=== PATIENT | female | born 1995 | race Caucasian/White ===

== ENCOUNTER 2018-08-04 21:04 | Emergency (ER) | payer SELFPAY ==
[~2018-08-04] VITALS: Ht 152.4 cm; Wt 56.8 kg
[2018-08-04 21:09] VITALS: Ht 152.4 cm; Wt 56.8 kg
[2018-08-05] MEDS ORDERED: LIDOCAINE 1% (MDV) 20 ML INJ SC ONE (02:30)
[2018-08-05] MEDS ORDERED: METR70GE15 VAG (04:52)
[2018-08-05] MEDS ORDERED: SULF1TAB31 PO (04:52)
[2018-08-05] MEDS ORDERED: IBUP800T48 PO (04:52)
[2018-08-05] MEDS ORDERED: CEPH-443 PO (04:52)
[2018-08-05] MEDS ORDERED: LIDOCAINE 1% (MPF) 5 ML VIAL INFIL ONE (05:00)
[2018-08-05] MEDS ORDERED: TRIMETHOPRIM/SULFAMETHOX (DS) TAB PO ONE (05:00)
[2018-08-05] MEDS ORDERED: CEFTRIAXONE 1 GM INJ IM ONE (05:00)
[2018-08-05] MEDS ORDERED: ONDANSETRON (ODT) 4 MG TAB ODT STA (05:09)
[2018-08-05] MEDS ORDERED: traMADol 50 MG TAB PO ONE (05:30)
[2018-08-05] MEDS ORDERED: ACETAMINOPHEN 500 MG TAB PO STA (05:36)
[2018-08-05 05:55] VITALS: BP 110/69; PULSE 103; RESP 20
[2018-08-05] MEDS ORDERED: IBUPROFEN 600 MG TAB PO ONE (06:00)
--- NOTE | 2018-08-05 21:54 | ERD ---
ER Documentation Chief Complaint Chief Complaint STATES RED PAINFUL SWOLLEN BUMP TO VAGINAL AREA X4 DAYS HPI History of Present Illness: 22-year-old female coming in today with complaint of red painful swollen bump to the vaginal area that started 4 days ago and has increased in size.. Patient reports difficulty walking due to pain associated with area of concern. Patient denies any systemic signs of infection symptoms. At home pharmacological/nonpharmacological treatment for symptoms: Denies Denies social concerns; Denies recent foreign travel ROS All systems reviewed and are negative except as per history of present illness. Medications Home Meds Active Scripts Sulfamethoxazole/Trimethoprim* (Bactrim Ds* Tablet) 1 Each Tablet, 1 TAB PO BID for labial infection for 7 Days, TAB Prov:GREGOR TO NP 08/05/18 Cephalexin* (Keflex*) 500 Mg Capsule, 500 MG PO QID for labial infecton for 7 Days, CAP Prov:GREGOR TO V ENAMEL DRIER 08/05/18 Ibuprofen* (Motrin*) 800 Mg Tab, 800 MG PO Q6H PRN for PAIN AND OR ELEVATED TEMP, #30 TAB Prov:GREGOR TO V ENAMEL DRIER 08/05/18 Metronidazole* (Metrogel* Vaginal) 0.75% -70 Gram Gel.w.appl, 1 APPFUL VAG BID for 5 Days, TUB Prov:GREGOR TO NP 08/05/18 Allergies Allergies: Coded Allergies: No Known Allergy (Unverified , 08/04/18) PMhx/Soc Medical and Surgical Hx: pt denies Medical Hx, pt denies Surgical Hx Hx Alcohol Use: Yes (socially) Hx Substance Use: No Hx Tobacco Use: No Smoking Status: Never smoker FmHx Family History: diabetes Physical Exam Vitals Vital Signs Date Temp Pulse Resp B/P (MAP) Pulse Ox O2 O2 Flow FiO2 Time Delivery Rate 08/05/18 101.3 103 20 110/69 98 Room Air 05:55 (83) 08/05/18 101.3 05:46 08/05/18 101.3 05:46 08/04/18 100.5 105 17 121/69 97 21:09 (86) Physical Exam Const: No acute distress Head: Atraumatic Eyes: Normal Conjunctiva ENT: Normal External Ears, Nose and Mouth. Neck: Full range of motion. No meningismus. Resp: Clear to auscultation bilaterally Cardio: Regular rate and rhythm, no murmurs; heart rate 98 Abd: Soft, non tender, non distended. Normal bowel sounds Skin: No petechiae or rashes Back: No midline or flank tenderness Ext: No cyanosis, or edema Neur: Awake and alert Psych: Normal Mood and Affect Pelvic Exam: [employer] Supervisor present Abdomen: Nontender External Genitalia: Abscess noted to left labia. Positive fluctuance. Tender to palpation. No streaking or surrounding cellulitis. Speculum: --; No speculum used, milky white odorous discharge noted. Urogenital wet mount collected using cotton Q-tips. Bimanual: -- Results 24 hrs Laboratory Tests Test 08/05/18 05:23 Bedside Urine pH (LAB) 6.0 Bedside Urine Protein (LAB) 2+ Bedside Urine Glucose (UA) Negative Bedside Urine Ketones (LAB) 1+ Bedside Urine Blood 3+ Bedside Urine Nitrite (LAB) Negative Bedside Urine Leukocyte Esterase (L Negative Current Medications Medications Dose Sig/Ray Start Time Status Last (Trade) Ordered Route PRN Stop Time Admin Dose Reason Admin Lidocaine 20 ml ONCE ONCE 08/05/18 DC (Xylocaine SC 02:30 1% (Mdv) 20 08/05/18 02:31 ml) Ceftriaxone 1 gm ONCE ONCE 08/05/18 DC 08/05/18 Sodium IM 05:00 05:00 (Rocephin) 08/05/18 05:01 Lidocaine 2.1 ml ONCE ONCE 08/05/18 DC 08/05/18 (Xylocaine INFIL 05:00 05:01 1% (Mpf)) 08/05/18 05:01 1 tab ONCE ONCE 08/05/18 DC 08/05/18 Trimethoprim/ PO 05:00 05:00 08/05/18 05:01 Sulfamethoxaz ole (Bactrim (Ds)) Tramadol 50 mg ONCE ONCE 08/05/18 DC 08/05/18 HCl PO 05:30 05:30 (Ultram) 08/05/18 05:31 Ondansetron 4 mg ONCE STAT 08/05/18 DC 08/05/18 HCl (Zofran ODT 05:09 05:30 Odt) 08/05/18 05:11 1,000 mg ONCE STAT 08/05/18 DC 08/05/18 Acetaminophen PO 05:36 05:46 (Tylenol 08/05/18 05:40 Tab) Ibuprofen 600 mg ONCE ONCE 08/05/18 DC 08/05/18 (Motrin) PO 06:00 05:46 08/05/18 06:01 Procedures/MDM ED course includes a thorough examination and history. Medications: Acetaminophen ibuprofen for fever Imaging:---- Labs: Urogenital wet mount Abscess Incision and Drainage with irrigation by me: Location: Left labia Anesthesia: Local 1% Lidocaine Technique: Irrigated. Disrupted loculations w/ instrumentation Packing: Iodoform Complications: No complications 48 hour wound check removal of packing. Scar minimization instructions given. Low suspicion for life-threatening medical emergency. Low suspicion for infectious emergency that requires hospitalization or immediate surgical intervention. Low suspicion of genitourinary emergency that requires hospitalization or immediate surgical intervention. No tunneling of abscess. Otherwise healthy patient presenting with constellation of symptoms likely representing abscess/Bartholin glands infection as characterized by history, physical exam findings, lab findings. Urogenital wet mount without clue cells or trichomonas. Due to the odor and milky white discharge, will prophylactically treat for vaginosis with metronidazole. Will order gonorrhea chlamydia on urine to determine etiology if that is present and that is causing discharge. Patient admits to monogamous relationship. ED course includes IM ceftriaxone before discharge. Tramadol for pain and prophylactic Zofran. No acute distress. Patient hemodynamically stable despite fever. No respiratory distress, otherwise relatively well appearing and nontoxic. Patient educated on diagnoses, prescriptions, follow-up care, return precautions. Strict return precautions given for worsening condition; questions answered discharge. Disposition for discharge with followup in 2 days with PCP/clinic. Departure Diagnosis: Primary Impression: Bartholin's gland infection Additional Impressions: Abscess of left genital labia BV (bacterial vaginosis) Condition: Stable Patient Instructions: Bartholin's Cyst (I And D), Vaginitis, Bacterial Referrals: COMMUNITY CLINICS YOU HAVE RECEIVED A MEDICAL SCREENING EXAM AND THE RESULTS INDICATE THAT YOU DO NOT HAVE A CONDITION THAT REQUIRES URGENT TREATMENT IN THE EMERGENCY DEPARTMENT. FURTHER EVALUATION AND TREATMENT OF YOUR CONDITION CAN WAIT UNTIL YOU ARE SEEN IN YOUR DOCTORS OFFICE WITHIN THE NEXT 1-2 DAYS. IT IS YOUR RESPONSIBILITY TO MAKE AN APPOINTMENT FOR FOLOW-UP CARE. IF YOU HAVE A PRIMARY DOCTOR --you should call your primary doctor and schedule an appointment IF YOU DO NOT HAVE A PRIMARY DOCTOR YOU CAN CALL OUR PHYSICIAN REFERRAL HOTLINE AT IF YOU CAN NOT AFFORD TO SEE A PHYSICIAN YOU CAN CHOSE FROM THE FOLLOWING [facility] [address] [facility] [address] [facility] [address] [facility] [address] [facility] [address] [facility]. [facility] [address] [facility]. [facility] YOU HAVE RECEIVED A MEDICAL SCREENING EXAM AND THE RESULTS INDICATE THAT YOU DO NOT HAVE A CONDITION THAT REQUIRES URGENT TREATMENT IN THE EMERGENCY DEPARTMENT. FURTHER EVALUATION AND TREATMENT OF YOUR CONDITION CAN WAIT UNTIL YOU ARE SEEN IN YOUR DOCTORS OFFICE WITHIN THE NEXT 1-2 DAYS. IT IS YOUR RESPONSIBILITY TO MAKE AN APPOINTMENT FOR FOLOW-UP CARE. IF YOU HAVE A PRIMARY DOCTOR --you should call your primary doctor and schedule and appointment IF YOU DO NOT HAVE A PRIMARY DOCTOR YOU CAN CALL OUR PHYSICIAN REFERRAL HOTLINE AT . IF YOU CAN NOT AFFORD TO SEE A PHYSICIAN YOU CAN CHOSE FROM THE FOLLOWING [facility] INSTITUTIONS: [facility] [address] [place] [address] [facility] [address] [place] [address] [facility] + [facility] [address] [place] [address] Additional Instructions: Thank you very much for allowing us to participate in your care. Your health and safety is our top priority at [facility]. It is important to read all discharge instructions and education provided in your discharge packet. Call your primary care doctor TOMORROW for an appointment during the next 2-4 days and bring all the information and medications prescribed. Have prescriptions filled and follow precisely the directions on the label. -Cephalexin as an antibiotic for the labial infection; you must take this medication every 6 hours for the next 10 days. -Bactrim is another antibiotic for the labial infection; you must take this medication every 12 hours for the next 10 days. -Metronidazole is a vaginal suppository; you must take this medication every 12 hours for the next 5 days for the white, vaginal discharge infection. -Ibuprofen is a anti-inflammatory/pain medication; you can take this every 6-8 hours for pain and inflammation. If the symptoms get worse and your provider is unavailable, return to the Emergency Department immediately. GREGOR TO NP Aug 05, 2018 21:54
== END 2018-08-05 05:55 | disposition home or self-care (01) ==
LOC: FTE 21:04
DX: N75.8 Other diseases of Bartholin's gland (principal); N76.4 Abscess of vulva; N76.0 Acute vaginitis
CPT/HCPCS: 56420; 81003; 87210; 87591; 96372; 99284; J0696

== ENCOUNTER 2018-08-07 16:38 | Emergency (ER) | payer SELFPAY ==
[~2018-08-07] VITALS: Wt 57.1 kg
[~2018-08-07 16:38] MED LIST: CEPH-443 PO; IBUP800T48 PO; METR70GE15 VAG; SULF1TAB31 PO
[2018-08-07 16:41] VITALS: BP 114/78; PULSE 100; RESP 18
--- NOTE | 2018-08-07 17:34 | ERD ---
ER Documentation Chief Complaint Chief Complaint HERE FOR WOUND CHECK FOR A BARTOLIN CYST 2 DAYS AGO HPI This is a 22-year-old female patient who presents to the emergency room for a recheck to I&D of Bartholin gland cyst 2 days ago. Patient states she is feeling better only occasionally taking ibuprofen, no fevers, no vaginal discharge, no purulent or malodorous drainage. Patient states she is compliant with her antibiotics. ROS All systems reviewed and are negative except as per history of present illness. Medications Home Meds Active Scripts Sulfamethoxazole/Trimethoprim* (Bactrim Ds* Tablet) 1 Each Tablet, 1 TAB PO BID for labial infection for 7 Days, TAB Prov:GWEN TOA V LINEN ROOM CUSTODIAN 08/05/18 Cephalexin* (Keflex*) 500 Mg Capsule, 500 MG PO QID for labial infecton for 7 Days, CAP Prov:GWEN TOA V LINEN ROOM CUSTODIAN 08/05/18 Ibuprofen* (Motrin*) 800 Mg Tab, 800 MG PO Q6H PRN for PAIN AND OR ELEVATED TEMP, #30 TAB Prov:GREGOR TO V LINEN ROOM CUSTODIAN 08/05/18 Metronidazole* (Metrogel* Vaginal) 0.75% -70 Gram Gel.w.appl, 1 APPFUL VAG BID for 5 Days, TUB Prov:GWEN TOA V LINEN ROOM CUSTODIAN 08/05/18 Allergies Allergies: Coded Allergies: No Known Allergy (Unverified , 08/04/18) PMhx/Soc Medical and Surgical Hx: pt denies Medical Hx, pt denies Surgical Hx Hx Alcohol Use: Yes (socially) Hx Substance Use: No Hx Tobacco Use: No Smoking Status: Never smoker Physical Exam Vitals Vital Signs Date Temp Pulse Resp B/P (MAP) Pulse Ox O2 O2 Flow FiO2 Time Delivery Rate 08/07/18 98.1 100 18 114/78 97 16:41 (90) Physical Exam Const: No acute distress Head: Atraumatic Eyes: Normal Conjunctiva, PERRL ENT: Normal External Ears, Nose and Mouth. Neck: Full range of motion. No meningismus. Resp: Clear to auscultation bilaterally Cardio: Regular rate and rhythm, no murmurs Abd: Soft, non tender, non distended. Normal bowel sounds Skin: No petechiae or rashes. I/D puncture to left perineum with iodoform gauze in place. Gauze removed intact, wound bed with healthy pink granulating appearance, no induration, no pus, no drainage. Periwound skin pink and intact. Back: No midline or flank tenderness Ext: No cyanosis, or edema Neur: Awake and alert Psych: Normal Mood and Affect Procedures/MDM Thi 22 yo female patient presents for wound check. Inspection of wound does not reveal redness, swelling, drainage. Wound is healing WNL. The discussion had with patient regarding wound care including use of sits baths, keeping area clean and dry, completing course of antibiotics. Patient instructed on red flags and signs and symptoms to return to the emergency room. Instructed patient to complete antibiotics and follow-up at [facility] in 5 days for recheck if needed or return to ED with concerns. Departure Diagnosis: Primary Impression: Abscess of left genital labia Condition: Stable Patient Instructions: Bartholin's Cyst (I And D) Referrals: COMMUNITY CLINICS Additional Instructions: Thank you very much for allowing us to participate in your care. Your health and safety is our top priority at [facility]. See [facility] in 5-7 days for wound check. If the symptoms get worse and your provider is unavailable, return to the Emergency Department immediately. TEE LEI NP Aug 07, 2018 17:34
== END 2018-08-07 17:39 | disposition home or self-care (01) ==
LOC: FTE 16:38
DX: N76.4 Abscess of vulva (principal)
CPT/HCPCS: 99281